=== PATIENT | male | born 1965 | race African-American/Black ===

== ENCOUNTER 2021-07-15 08:55 | Emergency (ER) | payer MEDICAID ==
[~2021-07-15] VITALS: Ht 177.8 cm; Wt 73.0 kg
[2021-07-15 08:59] VITALS: BP 130/65
[2021-07-15] MEDS ORDERED: LIDOCAINE HCL/EPINEPHRINE 1%-EPI 1:100,000 20 ML VIAL INFIL ONE (10:15)
[2021-07-15] MEDS ORDERED: LIDOCAINE HCL/EPINEPHRINE 1%-EPI 1:100,000 10 ML VIAL INFIL SCH (10:30)
[2021-07-15] MEDS ORDERED: CEPH500T MT (10:51)
== END 2021-07-15 11:30 | disposition home or self-care (01) ==
LOC: ER 08:55
DX: L02.416 Cutaneous abscess of left lower limb (principal); I10 Essential (primary) hypertension
CPT/HCPCS: 10060; 99283; J3490; Z7610